=== PATIENT | female | born 1965 | race Two or more races ===

== ENCOUNTER 2023-04-13 10:07 | Day surgery (SDC) | payer OTHER ==
[~2023-04-13 10:07] MED LIST: MESTINON180 MG PO; MESTINON60 MG/5 ML PO
[2023-04-13] MEDS ORDERED: MIDAZOLAM HCL 2 MG/2 ML VIAL IV ONE (14:15)
[2023-04-13] MEDS ORDERED: DIPHENHYDRAMINE HCL 50 MG/ML VIAL 1ML IV ONE (14:15)
[2023-04-13] MEDS ORDERED: fentaNYL CITRATE 50 MCG/ML AMPUL IV ONE (14:15)
== END 2023-04-13 15:55 | disposition home or self-care (01) ==
LOC: AMB-ENDOS 10:07
PROVIDERS: ATTEND Internal Medicine Gastroenterology
DX: D12.3 Benign neoplasm of transverse colon (principal); K29.50 Unspecified chronic gastritis without bleeding; K63.5 Polyp of colon; Z12.11 Encounter for screening for malignant neoplasm of colon; R10.13 Epigastric pain